=== PATIENT | female | born 1980 | race African-American/Black ===

== ENCOUNTER 2023-08-29 13:43 | Inpatient (IN) | payer MEDICAID, OTHER ==
[~2023-08-29] VITALS: Ht 160 cm; Wt 114.0 kg
[2023-08-29] MEDS: SODIUM CHLORIDE 0.9% 500 ML IV ONE (15:02)
[2023-08-29] MEDS: CLINDAMYCIN 600MG IV 50 ML IV ONE (15:05)
[2023-08-29 15:26] VITALS: RESP 18; O2SAT 96
[2023-08-29 15:34] LABS: Basophils # (auto) 0 10 ^3/uL (0-0.2); Basophils % (auto) 0.5 % (0.0-2.0); Eosinophils # (auto) 0 10 ^3/uL (0-0.8); Eosinophils % (auto) 0.4 % (0.0-7.0); Hematocrit 37.7 % (36.0-46.0); Hemoglobin 12.1 g/dL (12.2-16.2); Lymphocytes # (auto) 1.1 10 ^3/uL (0.4-5.4); Lymphocytes % (auto) 16.9 % (10.0-50.0); Mean Corpuscular Hemoglobin 28.8 pg (28.0-32.0); Mean Corpuscular Hgb Conc. 32.2 g/dL (32.0-36.0); Mean Corpuscular Volume 89.5 fL (80.0-100.0); Monocytes # (auto) 0.6 10 ^3/uL (0-1.3); Monocytes % (auto) 9.5 % (0.0-12.0); Neutrophils # (auto) 4.8 10 ^3/uL (1.6-8.6); Neutrophils % (auto) 72.7 % (37.0-80.0); Nucleated Red Blood Cells % 0.1 %; Red Blood Cells 4.21 10^6/uL (4.0-5.20); Red Cell Distribution Width 15.9 % (11.8-14.3); White Blood Cell 6.6 10^3/uL (4.4-10.8)
[2023-08-29 15:47] LABS: Potassium 4.3 mmol/L (3.5-5.1); Sodium 138 mmol/L (136-145)
[2023-08-29 15:48] LABS: Carbon Dioxide 29 mmol/L (20-30)
[2023-08-29 15:53] LABS: BUN/Creatinine Ratio 17.9 (10.0-20.0); Blood Urea Nitrogen 15 mg/dL (9-23); Glucose 98 mg/dL (74-106)
[2023-08-29 16:18] LABS: Anion Gap 3 (5-15); Chloride 106 mmol/L (98-107)
[2023-08-29] MEDS ORDERED: ONDANSETRON HCL 4 MG/2 ML VIAL IV PRN (16:45)
[2023-08-29] MEDS ORDERED: DOCUSATE SOD 100 MG CAP PO PRN (16:45)
[2023-08-29 19:07] LABS: INR 0.88 (0.9-1.15); Prothrombin Time 9.4 sec (9.3-11.8)
[2023-08-29] MEDS ORDERED: HYDROcodone-ACET 5/325MG TAB PO PRN (19:15)
[2023-08-29] MEDS: SODIUM CHLORIDE 0.9% 1,000 ML IV SCH (19:52)
[2023-08-29] MEDS: HYDROcodone-ACET 5/325MG TAB PO ONE (19:53)
[2023-08-29 20:54] VITALS: PULSE 85; RESP 17; O2SAT 100
[2023-08-29 22:00] VITALS: BP 94/55; PULSE 105; RESP 16; TEMP 98.1; O2SAT 100
[2023-08-29] MEDS: CLINDAMYCIN 300MG IV 50 ML IV SCH (22:00)
[2023-08-30] MEDS ORDERED: ENOXAPARIN SOD 40 MG/0.4 ML SYRINGE SC SCH (10:00)
== END 2023-08-29 22:38 | disposition left against medical advice (07) | DRG 383 ==
LOC: ER 13:43 → EDBD 13:43 → OVERFLOW 18:21
PROVIDERS: ADMIT Nurse Practitioner Family; ATTEND Nurse Practitioner Family
DX: L03.116 Cellulitis of left lower limb (principal); I69.354 Hemiplegia and hemiparesis following cerebral infarction affecting left non-dominant side; L03.115 Cellulitis of right lower limb; Z74.01 Bed confinement status; Z53.29 Procedure and treatment not carried out because of patient's decision for other reasons; Z79.899 Other long term (current) drug therapy
CPT/HCPCS: 36415; 80048; 85025; 85610; 93970; G0378; J3490

== ENCOUNTER 2023-10-04 15:58 | Emergency (ER) | payer MEDICAID ==
[~2023-10-04] VITALS: Ht 160 cm; Wt 100.0 kg
[2023-10-04] MEDS ORDERED: MORPHINE SULFATE 4 MG/ML SYR/VIAL IM ONE (16:15)
[2023-10-04 17:40] VITALS: TEMP 98.2
[2023-10-04] MEDS: ACETAMINOPHEN 325 MG TAB PO ONE (17:42)
[2023-10-04] MEDS: MORPHINE SULFATE 4 MG/ML SYR/VIAL IM ONE (17:43)
[2023-10-04] MEDS ORDERED: HYDR-4902 PO (18:06)
[2023-10-04] MEDS ORDERED: PERCOT PO (18:31)
[2023-10-04 19:24] VITALS: BP 101/64; PULSE 90; RESP 20; O2SAT 95
== END 2023-10-04 19:46 | disposition home or self-care (01) ==
LOC: EDUNIT# 15:58 → EDBD 15:58 → ER 16:03
DX: R51.9 Headache, unspecified (principal); Z76.0 Encounter for issue of repeat prescription
CPT/HCPCS: 96372; 99283; J2270

== ENCOUNTER 2023-10-28 22:17 | Emergency (ER) | payer MEDICAID ==
[~2023-10-28] VITALS: Ht 160 cm; Wt 114.0 kg
[~2023-10-28 22:17] MED LIST: PERCOT PO
[2023-10-29 01:06] LABS: Basophils # (auto) 0 10 ^3/uL (0-0.2); Basophils % (auto) 0.4 % (0.0-2.0); Eosinophils # (auto) 0 10 ^3/uL (0-0.8); Eosinophils % (auto) 0.1 % (0.0-7.0); Hematocrit 40.5 % (36.0-46.0); Hemoglobin 13.3 g/dL (12.2-16.2); Lymphocytes # (auto) 2.3 10 ^3/uL (0.4-5.4); Lymphocytes % (auto) 31.2 % (10.0-50.0); Mean Corpuscular Hemoglobin 29.5 pg (28.0-32.0); Mean Corpuscular Hgb Conc. 32.7 g/dL (32.0-36.0); Mean Corpuscular Volume 90.2 fL (80.0-100.0); Monocytes # (auto) 0.7 10 ^3/uL (0-1.3); Monocytes % (auto) 8.9 % (0.0-12.0); Neutrophils # (auto) 4.4 10 ^3/uL (1.6-8.6); Neutrophils % (auto) 59.4 % (37.0-80.0); Nucleated Red Blood Cells % 0.1 %; Red Blood Cells 4.49 10^6/uL (4.0-5.20); Red Cell Distribution Width 16.6 % (11.8-14.3); White Blood Cell 7.3 10^3/uL (4.4-10.8)
[2023-10-29] MEDS ORDERED: VANCOMYCIN PER PHARMACY 0 MG IV SCH (01:15)
[2023-10-29 01:16] LABS: Chloride 106 mmol/L (98-107); Potassium 4.2 mmol/L (3.5-5.1); Sodium 139 mmol/L (136-145)
[2023-10-29 01:17] LABS: Anion Gap 6 (5-15); Carbon Dioxide 27 mmol/L (20-30)
[2023-10-29 01:22] LABS: BUN/Creatinine Ratio 15.6 (10.0-20.0); Blood Urea Nitrogen 12 mg/dL (9-23); Glucose 92 mg/dL (74-106)
[2023-10-29 01:41] LABS: CRP High Sensitivity 0.09 mg/dL (<1.0)
[2023-10-29] MEDS: OXYCODONE W/ ACETAMINOPHEN 5/325MG TABLET PO ONE (02:26)
[2023-10-29 02:38] LABS: Erythrocyte Sedimentation Rate 10 mm/hr (0-20)
[2023-10-29] MEDS: VANCOMYCIN 1GM/200ML 200 ML IV ONE (04:35)
[2023-10-29] MEDS ORDERED: BACDST PO (05:55)
[2023-10-29] MEDS ORDERED: PERCOT PO (05:59)
[2023-10-29 06:06] VITALS: BP 111/68; PULSE 81; RESP 18; TEMP 98.2; O2SAT 98
[2023-10-29] MEDS: DexAMETHasone SOD PHOS 10MG/1ML VIAL INJ IV ONE (06:07)
== END 2023-10-29 06:05 | disposition left against medical advice (07) ==
LOC: ER 22:17 → EDBD 22:17 → ER 10-29 06:05
DX: D49.6 Neoplasm of unspecified behavior of brain (principal); G93.6 Cerebral edema; L97.921 Non-pressure chronic ulcer of unspecified part of left lower leg limited to breakdown of skin; Z85.9 Personal history of malignant neoplasm, unspecified; Z86.73 Personal history of transient ischemic attack (TIA), and cerebral infarction without residual deficits
CPT/HCPCS: 36415; 70450; 80048; 83605; 85025; 85652; 86141; 96365; 96375; 99285; J1100; J3370